=== PATIENT | female | born 2000 ===

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

== ENCOUNTER 2018-06-26 18:44 | Emergency (ER) | payer OTHER ==
[2018-06-26 19:12] VITALS: BP 108/70; PULSE 81; RESP 18; TEMP 98.9; O2SAT 100
[2018-06-26] MEDS ORDERED: Tdap Vaccine 0.5 ml Vial (10-64 yrs) IM ONE ×2 (19:28→20:06)
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
== END 2018-06-26 20:28 | disposition home or self-care (01) ==
LOC: H.ER 18:44
DX: S61.303A Unspecified open wound of left middle finger with damage to nail, initial encounter (principal); Y04.0XXA Assault by unarmed brawl or fight, initial encounter; Y92.89 Other specified places as the place of occurrence of the external cause; L08.9 Local infection of the skin and subcutaneous tissue, unspecified

== ENCOUNTER 2019-02-25 21:43 | Emergency (ER) | payer OTHER ==
[2019-02-25 21:54] VITALS: BMI 30.2
[2019-02-25 21:56] VITALS: RESP 16; O2SAT 100
[2019-02-25] MEDS ORDERED: Alum-Mag Hydrox-Simethicone Susp (30 mL) PO ONE (22:43)
[2019-02-25 22:52] LABS: SQUAMOUS EPITHIAL 3 /hpf (0-5); URINE BACTERIA RARE (<OCC); URINE BILIRUBIN NEGATIVE (NEGATIVE); URINE BLOOD SMALL (NEGATIVE); URINE CLARITY SLIGHTY-CLOUDY (Clear); URINE COLOR YELLOW (YELLOW); URINE GLUCOSE (UA) NEG (NEGATIVE); URINE LEUKOCYTE ESTERASE SMALL Leu/uL (Negative); URINE PROTEIN 30 mg/dL (NEGATIVE)
[2019-02-25 22:59] LABS: BASO % 0.6 % (0.0-2.0); EOS # 0.1 K/uL (0.0-0.7); EOS % 1.2 % (0.0-4.0); HEMOGLOBIN 13.7 g/dL (12.0-16.0); LYMPH # 1.7 K/uL (1.0-4.3); LYMPH % 20.6 % (20.0-40.0); MEAN CELL VOLUME 92.6 fl (81.0-99.0); MEAN CORPUSCULAR HGB CONC 33.5 g/dL (33.0-37.0); MEAN PLATELET VOLUME 9.6 fl (7.2-11.7); MONO # 0.8 K/uL (0.0-0.8); NEUT # 5.5 K/uL (1.8-7.0); NEUT % 67.6 % (50.0-75.0); NRBC % 0.1 % (0.0-0.0); RBC 4.43 Mil/uL (3.80-5.20); RED CELL DISTRIBUTION WIDTH 13.4 % (11.5-14.5); WHITE BLOOD COUNT 8.2 K/uL (4.8-10.8)
[2019-02-25] MEDS ORDERED: Alum-Mag Hydrox-Simethicone Susp (30 mL) ONE (23:02)
[2019-02-25 23:13] LABS: ALB/GLOB RATIO 1.3 (1.0-2.1); ALBUMIN 4.6 g/dL (3.5-5.0); ALT/SGPT 89 U/L (9-52); AST/SGOT 39 U/L (14-36); BLOOD UREA NITROGEN 21 mg/dl (7-17); CALCIUM 9.3 mg/dL (8.4-10.2); GFR NON-AFRICAN AMERICAN > 60; LIPASE 57 U/L (23-300)
--- NOTE | 2019-02-25 23:31 | ED PDOC ---
HPI: Abdomen Time Seen by Provider: 02/25/19 22:55 Chief Complaint (Nursing): Abdominal Pain Chief Complaint (Provider): ABDOMINAL PAIN History Per: Patient (19 Y/O FEMALE HERE WITH RIGHT SIDED ABDOMINAL PAIN X 1 DAY WORSE WITH DEEP BREATHING AND MOVING. NOTES SHE HAD 4 DAYS OF LOWER ABDOMINAL PAIN PRIOR. DENIES ANY DYSURIA CURRENTLY. ALSO NOTES MILD RIGHT SHOULDER DI SCOMFORT. TOOK MOTRIN X 2 WITHOUT RELIEF.) Past Medical History Reviewed: Historical Data, Nursing Documentation, Vital Signs Vital Signs: Last Vital Signs Temp 98.6 F 02/25/19 21:55 Pulse 84 02/25/19 21:55 Resp 16 02/25/19 21:55 BP 116/73 02/25/19 21:55 Pulse Ox 100 02/25/19 21:55 Primary Care Provider: Procedure,Nonphys - Medical History PMH: Denies: Diabetes (Pt denies), Hepatitis (Pt denies), HIV (Pt denies), HTN (Pt denies), Seizures (Pt denies), Sexually Transmitted Disease (Pt denies) - Family History Family History: States: Unknown Family Hx - Immunization History Hx Tetanus Toxoid Vaccination: No (not sure of last booster) - Home Medications Home Medications: Ambulatory Orders Medication Instructions Recorded Dicyclomine [Bentyl] 20 mg PO Q12 PRN #20 tab 09/30/15 Ondansetron ODT [Zofran ODT] 4 mg PO Q6H PRN #16 odt 09/30/15 Dicyclomine [Bentyl] 20 mg PO Q6 PRN #12 tab 12/18/16 Famotidine [Pepcid] 40 mg PO DAILY #10 tab 12/18/16 Ondansetron [Zofran] 4 mg PO Q8H #8 tab 12/18/16 Ibuprofen [Motrin] 600 mg PO Q6 #20 tab 10/01/17 Doxycycline Hyclate 100 mg PO BID #14 capsule 11/05/17 DiphenhydrAMINE [Benadryl] 50 mg PO Q6 PRN #24 cap 11/18/17 predniSONE [Prednisone] 3 tab PO DAILY #12 tab 11/18/17 Cephalexin [Keflex] 500 mg PO TID #21 capsule 06/26/18 Cefdinir [Omnicef] 300 mg PO BID #14 cap 02/26/19 Docusate Sodium [Colace] 100 mg PO BID #14 capsule 02/26/19 - Allergies Allergies/Adverse Reactions: Allergies Allergy/AdvReac Type Severity Reaction Status Date / Time No Known Allergies Allergy Verified 02/25/19 21:54 Review of Systems ROS Statement: Except As Marked, All Systems Reviewed And Found Negative Gastrointestinal: Positive for: Abdominal Pain Physical Exam - Reviewed Nursing Documentation Reviewed: Yes Vital Signs Reviewed: Yes - Physical Exam Appears: Positive for: Well, Non-toxic, No Acute Distress Head Exam: Positive for: ATRAUMATIC, NORMAL INSPECTION, NORMOCEPHALIC Skin: Positive for: Normal Color, Warm, DRY Eye Exam: Positive for: EOMI, Normal appearance, PERRL ENT: Positive for: Normal ENT Inspection Neck: Positive for: Normal, Painless ROM Cardiovascular/Chest: Positive for: Regular Rate, Rhythm Respiratory: Positive for: CNT, Normal Breath Sounds Gastrointestinal/Abdominal: Positive for: Normal Exam, Soft, Tenderness (RUQ TENDERNESS) Back: Positive for: Normal Inspection, R CVA Tenderness Extremity: Positive for: Normal ROM Neurological/Psych: Positive for: Awake, Alert, Normal Tone - Laboratory Results Result Diagrams: 02/25/19 22:56 02/25/19 22:56 Lab Results: Total Bilirubin 0.5 mg/dl (0.2-1.3) 02/25/19 22:56 AST 39 U/L (14-36) H D 02/25/19 22:56 ALT 89 U/L (9-52) H D 02/25/19 22:56 Alkaline Phosphatase 79 U/L (38-126) 02/25/19 22:56 Total Protein 8.2 G/DL (6.3-8.2) 02/25/19 22:56 Albumin 4.6 g/dL (3.5-5.0) 02/25/19 22:56 Globulin 3.6 gm/dL (2.2-3.9) 02/25/19 22:56 Albumin/Globulin Ratio 1.3 (1.0-2.1) 02/25/19 22:56 Lipase 57 U/L (23-300) 02/25/19 22:56 Urine Color Yellow (YELLOW) 02/25/19 22:39 Urine Clarity Slighty-cloudy (Clear) 02/25/19 22:39 Urine pH 7.0 (5.0-8.0) 02/25/19 22:39 Ur Specific [place] 1.029 (1.003-1.030) 02/25/19 22:39 Urine Protein 30 mg/dL (NEGATIVE) 02/25/19 22:39 Urine Glucose (UA) Neg mg/dL (NEGATIVE) 02/25/19 22:39 Urine Ketones Negative mg/dL (NEGATIVE) 02/25/19 22:39 Urine Blood Small (NEGATIVE) 02/25/19 22:39 Urine Nitrate Negative (NEGATIVE) 02/25/19 22:39 Urine Bilirubin Negative (NEGATIVE) 02/25/19 22:39 Urine Urobilinogen 2.0 mg/dL (0.2-1.0) H 02/25/19 22:39 Ur Leukocyte Esterase Small Camryn/uL (Negative) 02/25/19 22:39 Urine RBC (Auto) 15 /hpf (0-3) H 02/25/19 22:39 Urine Microscopic WBC 10 /hpf (0-5) H 02/25/19 22:39 Ur Squamous Epith Cells 3 /hpf (0-5) 02/25/19 22:39 Urine Bacteria Rare (<OCC) 02/25/19 22:39 Urine POC: Negative Urine dip results: Positive for: Leukocyte Esterase. Negative for: Blood, Nitrate, Ketones, Glucose, Bilirubin, Protein - ECG O2 Sat by Pulse Oximetry: 100 - Progress ED Course And Treament: PEPCID 20 MG IV X 1 DOSE MAALOX 30 ML PO X 1 DOSE us ruq gallbladder: wnl re-examined. Patient noted pain rlq CT of abdomen/pelvis: no appendicitis. constipation. mild ileus. atelectasis unable to evaluate for super imposed pneumonia. cxr: no pneumonia Medical Decision Making Medical Decision Makin:09 CT Abdomen and Pelvis COMMENTS: Moderate amount of fecal residue in the large bowel suggesting constipation. Scattered fluid-filled small bowel, probably mild ileus. Subsegmental atelectatic airspace disease of the posterior basal segment of the right lower lobe. Minimal adjacent groundglass densities. The liver is of uniform attenuation without mass or defect. There is no intra or extrahepatic biliary ductal dilatation. The spleen is normal. The gallbladder is within normal limits. The pancreas is of normal contour and attenuation characteristics. There is no evidence of adrenal mass. Both kidneys demonstrate prompt and equal nephrograms. The kidneys are normal in size, shape and configuration. There is no evidence of renal or ureteral mass. No renal or ureteral calculi are identified. There is no hydroureter or hydron ephrosis. No evidence for appendicitis. There is no bowel wall thickening. No evidence for small or large bowel obstruction. There is no evidence of abdominal ascites or lymphadenopathy. There is no evidence of intrinsic or extrinsic bladder mass. There is no pelvic ascites or lymphadenopathy. Images of the lung bases show no evidence of pleural or parenchymal mass. There are no pleural effusions. The bony structures are free of lytic or blastic lesions. IMPRESSION: Moderate amount of fecal residue in the large bowel suggesting constipation. Scattered fluid-filled small bowel, probably mild ileus. Subsegmental atelectatic airspace disease of the posterior basal segment of the right lower lobe. Findings are probably atelectatic. Please evaluate to exclude superimposed pneumonia. Minimal adjacent groundglass densities. Disposition - Clinical Impression Clinical Impression: Pyelonephritis, Constipation - Patient ED Disposition Is Patient to be Admitted: No - Disposition Referrals: [facility] [Outside] Disposition: Routine/Home Disposition Time: 01:55 Condition: FAIR Prescriptions: Cefdinir [Omnicef] 300 mg PO BID #14 cap Docusate Sodium [Colace] 100 mg PO BID #14 capsule Instructions: High Fiber Diet, Constipation, Adult (DC), Kidney Infection (DC) Forms: [facility] ED School/Work Excuse
[2019-02-25] MEDS ORDERED: cefTRIAXone (Rocephin) 1 gm Inj IVPB ONE (23:58)
[2019-02-26] MEDS ORDERED: cefTRIAXone (Rocephin) 1 gm Inj ONE (00:15)
[2019-02-26] MEDS ORDERED: Sodium Chloride 0.9% 50 ML IV ONE (02:18)
[2019-02-26] MEDS ORDERED: Iohexol 300 100 ML IJ ONE (02:18)
[2019-02-26 04:59] VITALS: BP 122/78; PULSE 82; TEMP 98.6
--- NOTE | 2019-02-26 07:44 | RAD ---
Date of service: 02/26/2019 HISTORY: evaluate for pneumonia COMPARISON: No prior. TECHNIQUE: Chest PA and lateral views FINDINGS: LUNGS: No active pulmonary disease. PLEURA: No significant pleural effusion identified. No pneumothorax apparent. CARDIOVASCULAR: No aortic atherosclerotic calcification present. Normal cardiac size. No pulmonary vascular congestion. OSSEOUS STRUCTURES: No significant abnormalities. VISUALIZED UPPER ABDOMEN: Normal. OTHER FINDINGS: None. IMPRESSION: No active disease.
--- NOTE | 2019-02-26 11:17 | CT ---
Date of service: 02/26/2019 PROCEDURE: CT Abdomen and Pelvis with contrast HISTORY: r/o appendicitis COMPARISON: None TECHNIQUE: CT scan of the abdomen and pelvis was performed after administration of intravenous contrast. Oral contrast was not administered. Coronal and sagittal reformatted images were obtained. Contrast dose: 90 mL Omnipaque 300 Radiation dose: Total exam DLP = 432.64 mGy-cm. This CT exam was performed using one or more of the following dose reduction techniques: Automated exposure control, adjustment of the mA and/or kV according to patient size, and/or use of iterative reconstruction technique. FINDINGS: LOWER THORAX: There is minimal subsegmental atelectasis in the right lung base. The visualized left lung is clear. LIVER: Normal in size with homogeneous enhancement. No gross lesion or ductal dilatation. GALLBLADDER AND BILE DUCTS: Well distended. No calcified gallstones, wall thickening or pericholecystic fluid. PANCREAS: Normal in size with homogeneous enhancement. No gross lesion or ductal dilatation. SPLEEN: Normal in size and appearance. ADRENALS: No discrete nodule. KIDNEYS AND URETERS: Normal in size with homogeneous enhancement. No hydronephrosis. No solid mass. VASCULATURE: No aortic aneurysm. There are no aortic atherosclerotic calcifications or mural plaque present. BOWEL: Evaluation of the bowel is limited in the absence of oral contrast. There are fluid-filled mildly dilated small bowel loops. There is moderate amount of stool in the colon. No bowel wall thickening or obstruction. APPENDIX: Normal appendix. PERITONEUM: No free fluid. No free air. LYMPH NODES: No enlarged lymph nodes. BLADDER: Partially decompressed. REPRODUCTIVE: The uterus is normal in size. BONES: No acute fracture. Within normal limits for the patient's age. OTHER FINDINGS: None. IMPRESSION: Fluid-filled mildly dilated small bowel loops could represent ileus or nonspecific enteritis no evidence for bowel obstruction. Constipation. A preliminary report was provided by [employer].
--- NOTE | 2019-02-26 12:34 | US ---
Date of service: 02/25/2019 HISTORY: R/O CHOLECYSTITIS COMPARISON: CT scan performed the same day. TECHNIQUE: Sonographic evaluation of the right upper quadrant of the abdomen. FINDINGS: LIVER: Measures 14.4 cm in length. Normal echogenicity of the liver parenchyma. No mass. No intrahepatic bile duct dilatation. GALLBLADDER: The gallbladder is contracted. COMMON BILE DUCT: Measures 3.0 mm. No stones. No dilatation. PANCREAS: Normal in size and echotexture. No mass. No ductal dilatation. RIGHT KIDNEY: Measures 9.7 cm in length. Normal echogenicity. No calculus, mass, or hydronephrosis. AORTA: No aneurysmal dilatation. IVC: Unremarkable. OTHER FINDINGS: None . IMPRESSION: Gallbladder is contracted, related to nonfasting status. No other abnormality. A preliminary report was provided by [employer].is negative.
== END 2019-02-26 04:33 | disposition home or self-care (01) ==
LOC: H.ER 21:43
DX: N12 Tubulo-interstitial nephritis, not specified as acute or chronic (principal); K59.00 Constipation, unspecified; Z79.899 Other long term (current) drug therapy
CPT/HCPCS: 71046; 74177; 76705; 80053; 81003; 81025; 83690; 85025; 87086; 96365; 96375; 99285; J0696; J1885; Q9967